=== PATIENT | female | born 1985 | race Caucasian/White ===

== ENCOUNTER → 2017-01-17 | Outpatient (CLI) | payer OTHER | LOC: FIMAGING 07:20 | PROVIDERS: ATTEND Advanced Practice Midwife | DX: Z34.02 Encounter for supervision of normal first pregnancy, second trimester (principal); Z3A.19 19 weeks gestation of pregnancy ==

== ENCOUNTER 2017-06-05 03:53 | Inpatient (IN) | payer OTHER ==
[2017-06-05] MEDS ORDERED: TERBUTALINE SULFATE 1 MG/ML VIAL IV PRN (04:31)
[2017-06-05] MEDS ORDERED: LR 1,000 ML IV PRN (04:31)
[2017-06-05] MEDS ORDERED: OLIVE OIL 118 ML BTL MISC PRN (04:31)
[2017-06-05] MEDS ORDERED: EPSOM SALT 454 GM TP PRN (04:31)
[2017-06-05] MEDS ORDERED: OXYTOCIN/NORMAL SALINE 1,000 ML IV PRN (04:31)
[2017-06-05] MEDS ORDERED: LIDOCAINE 1% 300 MG/30 ML SDV SC PRN (04:31)
[2017-06-05] MEDS ORDERED: AMMONIA AROMATIC 1 EACH AMP IH PRN (04:31)
[2017-06-05] MEDS ORDERED: MISOPROSTOL 200 MCG TAB PO PRN (04:31)
[2017-06-05 05:18] LABS: PLATELET COUNT 170 10^3/uL (150-400)
[2017-06-05] MEDS ORDERED: AMMONIA AROMATIC 1 EACH AMP IH ONE (05:38)
[2017-06-05] MEDS ORDERED: LIDOCAINE 1% 300 MG/30 ML SDV ONE (05:38)
[2017-06-05] MEDS ORDERED: OLIVE OIL 118 ML BTL ONE (05:38)
[2017-06-05] MEDS ORDERED: TERBUTALINE SULFATE 1 MG/ML VIAL ONE (05:39)
[2017-06-05] MEDS ORDERED: OXYTOCIN 10 UNIT/ML VIAL ONE (05:39)
[2017-06-05] MEDS ORDERED: MISOPROSTOL 200 MCG TAB ONE (05:39)
--- NOTE | 2017-06-05 05:52 | GHP ---
[f rep st] PREOP HISTORY AND PHYSICAL DATE OF ADMISSION: 06/05/2017 HISTORY: The patient is a 32-year-old, G1, P0, at 38 weeks and 6 days with sure last menstrual perio d and 9-week ultrasound, who presents with spontaneous onset of labor. Her contractions began approx imately 5:30 and have gradually increased. The patient is having increased fatigue and wanted to pre sent and find out how the labor progress is going. Bag of water is intact. The patient has not had any bleeding except a small amount with a mucus plug. Good movement. CURRENT HISTORY: The patient has been followed with [facility] since 9 weeks' ge station. The patient has essentially had an uncomplicated course. LABS: Include maternal blood type A positive with negative antibody screen. Initial hemato crit 42% with drop down to 39% in the . RPR nonreactive. Rubella immune. Hepatitis B surf marc antigen negative. HIV negative. 1-hour Glucola is normal. Urinalysis was negative. Gonorrhea and chlamydia were negative. TSH 2.2 with free T4 normal. Negative screening for SMA and cystic fib rosis. GBS culture was negative. PAST MEDICAL HISTORY: History of migraines, abnormal Pap smears with positive HPV but negative for t ype 16 and 18P. The patient had colposcopies in 2013 and 2014. 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 She has not had any subsequent problems. ALLERGIES: No known drug allergies. CURRENT MEDICATIONS: Only vitamins. SOCIAL HISTORY: The patient is , lives with her , and her mother is prior Labor and De livery nurse. The patient is a nonsmoker. No alcohol or drug use. PHYSICAL EXAM: GENERAL: Upon admission, the patient is a well-developed, well-nourished white femal e in no acute distress. VITAL SIGNS: The patient is afebrile with normal vital signs. See nursing documentation for full details. heart tones reveal a category 1 tracing, baseline in the 130s, with good variability and accelerations. Contractions every 3-5 minutes apart. Palpably mild to mo derate. PELVIC: Revealed the cervix was a loose 4 cm, 95% effaced, -1 station. Bag of water is int act. EXTREMITIES: Nontender with no edema. ASSESSMENT: Intrauterine at 38 weeks and 6 days with spontaneous onset of labor. Bag of w ater intact. GBS negative. The patient wants to attempt a natural approach to labor. We will get a n epidural if needed. PLAN: Expected vaginal delivery. History of positive HPV. Will follow up Paps . /[id number]/MODL
[2017-06-05] MEDS ORDERED: PHENYLEPHRINE HCL 100 MCG/ML SYR ONE (08:44)
[2017-06-05] MEDS ORDERED: fentaNYL 200 MCG, BUPIVACAINE 0.5% 20 ML in NS 100 ML EP SCH (09:00)
--- NOTE | 2017-06-05 09:38 | PREANESOB ---
Obstetric Pre-Anesthesia Info - General Info Proposed Procedure: Labor epidural : 1 Para: 0 JEREMY: 06/13/17 Gestational Age: 38 week(s) and 6 day(s) Anesthesia ROS: wnl Allergies/Adverse Reactions: Allergy/AdvReac Type Severity Reaction Status Date / Time No Known Allergies Allergy Unverified 06/05/17 04:06 Home Medications: Medication Instructions Recorded 1 tab PO DAILY 06/05/17 Visit Medications: Generic Name Dose Route Start Last Admin Trade Name Freq PRN Reason Stop Dose Admin Ammonia (Aromatic Spirit) 1 each 06/05/17 04:31 Ammonia Aromatic IH 06/15/17 04:30 ONCE PRN Fainting Lactated Ringer's 1,000 mls @ 0 mls/hr 06/05/17 04:31 Lr IV 06/06/17 04:30 PRN PRN SEE PROTOCOL CONDITIONS Protocol Per Protocol Oxytocin/Sodium Chloride 1,000 mls @ 0 mls/hr 06/05/17 04:31 Pitocin 20 Units/Ns (Premix) IV PRN PRN Post- bleeding Per Protocol Fentanyl 200 mcg/ Bupivacaine 100 mls @ 0 mls/hr 06/05/17 09:00 HCl 20 ml/ Sodium Chloride EP 06/15/17 08:59 CONT BRAD Protocol As Directed Ibuprofen 600 mg 06/05/17 04:31 Motrin PO 12/02/17 04:30 Q6HRS PRN post , inflammation Lidocaine HCl 300 mg 06/05/17 04:31 Lidocaine Hcl 1% SC 12/02/17 04:30 ONCE PRN episiotomy Magnesium Sulfate 454 gm 06/05/17 04:31 Epsom Salt TP 12/02/17 04:30 Q1H PRN perineal discomfort Misoprostol 800 - 1,000 mcg 06/05/17 04:31 Cytotec PO 12/02/17 04:30 ONCE PRN Vaginal Atony/Bleeding [place] Oil 118 ml 06/05/17 04:31 Sweet Oil MISC 12/02/17 04:30 ONCE PRN perineal massage Terbutaline Sulfate 0.25 mg 06/05/17 04:31 Brethine IV 12/02/17 04:30 ONCE PRN Tachysystole Discontinued Medications Generic Name Dose Route Start Last Admin Trade Name Freq PRN Reason Stop Dose Admin Ammonia (Aromatic Spirit) Confirm 06/05/17 05:38 Ammonia Aromatic Administered 06/05/17 05:39 Dose 1 each IH .STK-MED ONE Lidocaine HCl Confirm 06/05/17 05:38 Lidocaine Hcl 1% Administered 06/05/17 05:39 Dose 300 mg .ROUTE .STK-MED ONE Misoprostol Confirm 06/05/17 05:39 Cytotec Administered 06/05/17 05:40 Dose 1,000 mcg .ROUTE .STK-MED ONE [place] Oil Confirm 06/05/17 05:38 Sweet Oil Administered 06/05/17 05:39 Dose 118 ml .ROUTE .STK-MED ONE Oxytocin Confirm 06/05/17 05:39 Pitocin Administered 06/05/17 05:40 Dose 40 unit .ROUTE .STK-MED ONE Phenylephrine HCl Confirm 06/05/17 08:44 Neosynephrine Administered 06/05/17 08:45 Dose 1,000 mcg .ROUTE .STK-MED ONE Terbutaline Sulfate Confirm 06/05/17 05:39 Brethine Administered 06/05/17 05:40 Dose 1 mg .ROUTE .STK-MED ONE - Vital Signs Height/Weight (Nursing): Height 172.72 cm Weight 96.162 kg - Focused Exam Neck exam: FROM Mallampati Score: Class 2 Mouth exam: normal dental/mouth exam Pulmonary: no respiratory distress Cardiovascular: regular rate and rhythym Labs: 06/05/17 04:50 Patient ABO/Rh A POSITIVE 06/05/17 04:50 - Plan Anesthetic Plan: labor epidural Consent Signed and on Chart: Yes Patient/Guardian Understands and Agrees to Plan: Yes Urgent/Emergent Case: Abdi lawson completed preop but documented later for safe timely pt care
[2017-06-05] MEDS ORDERED: LIDOCAINE 1% 2 ML INJ ONE (10:10)
[2017-06-05] MEDS ORDERED: CALCIUM CARBONATE 500 MG CHEWABLE TAB PO PRN (10:51)
[2017-06-05] MEDS ORDERED: LR 500 ML IV PRN (11:30)
[2017-06-05] MEDS ORDERED: OXYTOCIN/NORMAL SALINE 500 ML IV SCH (11:30)
[2017-06-05] MEDS ORDERED: BUPIVACAINE 0.25% 30 ML SDV ONE (11:53)
--- NOTE | 2017-06-05 14:21 | OBPROG ---
Labor Progress Note Assessment/Plan: Assessment: at 38.6 weeks ega with spontaneous labor Comfortable with epidural in place Completely dilated, 0 station and laboring down Cntx q 5 min Plan: Will continue to labor down Augment with pitocin to improve contraction frequency Anticipate 06/05/17 14:18 06/05/17 14:27 Subjective/Intrapartum Course: 06/05/17 14:21 Comfortable with epidural, on side with peanut ball in place Objective: 06/05/17 04:50 Patient ABO/Rh A POSITIVE 06/05/17 04:50 VSS Category 1 EFM [place]: Cntx mod to palpation q 5 min CX:complete/0 station - SVE Dilation (cm): 10 Effacement (%): 100 Station: 0 Membranes: SROM Amniotic Fluid Color: Clear Dilation Complete Date: 06/05/17 - Contraction Pattern Assessment Current Contraction Pattern: Regular - FHR Assessment Lamb FHR (bpm): 140 FHR Pattern Variability: Moderate FHR Category: 1 Oxytocin Orders Assessment - Pre-Induction/Augmentation Assessment Gestational Age: 38 week(s) and 6 day(s) ICD10 Worksheet Patient Problems: Problems Problem Status Onset EARLY LABOR Acute
[2017-06-05] MEDS ORDERED: PROPOFOL 200 MG/20 ML VIAL ONE (16:18)
[2017-06-05] MEDS ORDERED: LIDOCAINE 2% 5 ML SDV ONE (16:18)
--- NOTE | 2017-06-05 16:48 | POSTANESTH ---
Post Anesthetic Evaluation Cardiovascular Status: Normal, Stable Respiratory Status: Normal, Stable Level of Consciousness/Mental Status: Can Participate in Eval Pain Control: Adequate, Prn Tx Ordered Nausea/Vomiting Control: Adequate, Prn Tx Ordered Complications Possibly Related to Anesthesia: None Noted
[2017-06-05] MEDS ORDERED: SIMETHICONE 80 MG TAB CHEW PO PRN (17:30)
[2017-06-05] MEDS ORDERED: HYDROCODONE/APAP 5/325 TAB PO PRN (17:30)
[2017-06-05] MEDS ORDERED: ACETAMINOPHEN 325 MG TAB PO PRN (17:30)
[2017-06-05] MEDS ORDERED: HYDROCORTISONE 0.5% CREAM TP PRN (17:30)
--- NOTE | 2017-06-05 17:37 | OBDEL ---
Info Presentation at Delivery: Vertex L&D Analgesia/Anesthesia Type: Epidural GBS+: No Intrapartum Medications: Generic Name Dose Route Start Last Admin Trade Name Freq PRN Reason Stop Dose Admin Calcium Carbonate 500 mg 06/05/17 10:51 06/05/17 11:23 Tums PO 12/02/17 10:50 500 mg TID PRN Administration Indigestion Oxytocin/Sodium Chloride 500 mls @ 0 mls/hr 06/05/17 11:30 06/05/17 14:02 Pitocin 30 Units/Ns (Premix) IV 12/02/17 11:29 500 mls CONT BRAD Administration Protocol Per Protocol - Care Provider Lodge Sales Associate/TRANSPORTATION SUPERVISOR: Kacie Santiago - Hospital Course Intrapartum: 06/05/17 14:21 Comfortable with epidural, on side with peanut ball in place Indications for Delivery: Spontaneous Labor, SROM Vaginal Delivery - Delivery Provider Delivery Physician/CNM: Mile Asencio Proctoring Provider: Angelo Currie - Labor and Delivery Onset of Contractions Date: 06/05/17 Onset of Contractions Time: 17:30 Onset of Contractions Type: Augmented Rupture of Membranes Date: 06/05/17 Rupture of Membranes Time: 07:52 Rupture of Membranes Type: Spontaneous Amniotic Fluid Color: Clear Dilation Complete Date: 06/05/17 Dilation Complete Time: 12:25 Placenta Delivery Date: 06/05/17 Placenta Delivery Time: 16:41 Total Hours of Labor: 0 Non-surgical Procedures: FSE Laceration: 2nd Degree, Other (Specify) (left sulcus) Repair: 2-0, Vicryl Vaginal Sponge Count Correct: Yes Vaginal Needle Count Correct: Yes Vaginal Sweep Performed: No EBL: 300 Cord Gases: Cord Gases Cord Blood PCO2 65.0 mmHg (37-60) H 06/05/17 16:40 Cord Base Excess -9.8 mEq/L (-13.6--3.2) 06/05/17 16:40 Cord ABG pH 7.14 (7.10-7.37) 06/05/17 16:40 Cord VBG pH 7.26 (7.20-7.42) 06/05/17 16:40 Operative Report - Delivery Cord Gases: Cord Gases Cord Blood PCO2 65.0 mmHg (37-60) H 06/05/17 16:40 Cord Base Excess -9.8 mEq/L (-13.6--3.2) 06/05/17 16:40 Cord ABG pH 7.14 (7.10-7.37) 06/05/17 16:40 Cord VBG pH 7.26 (7.20-7.42) 06/05/17 16:40 Assissted Delivery Assisted Delivery Type: Vacuum Station: +3 Pop offs (Total): 1 Pulls (Total): 2 Assisted Delivery Comment: vacuum assisted delivery by Delvin Drew [place] Data JEREMY: 06/13/17 Gestational Age: 38 week(s) and 6 day(s) Lamb Delivery Date: 05/29/17 Delivery Time: 16:36 Sex of Infant: Female Score (1 Min): 7 Score (5 Min): 9 ICD10 Worksheet Patient Problems: Problems Problem Status Onset EARLY LABOR Acute
[2017-06-05] MEDS: IBUPROFEN 600 MG TAB PO PRN (17:57)
[2017-06-06] MEDS: IBUPROFEN 600 MG TAB PO PRN ×4 (00:05→18:01)
--- NOTE | 2017-06-06 00:38 | OBDEL ---
Info Type: Vaginal Presentation at Delivery: Vertex L&D Analgesia/Anesthesia Type: Epidural GBS+: No Intrapartum Medications: Generic Name Dose Route Start Last Admin Trade Name Freq PRN Reason Stop Dose Admin Calcium Carbonate 500 mg 06/05/17 10:51 06/05/17 11:23 Tums PO 12/02/17 10:50 500 mg TID PRN Administration Indigestion Ibuprofen 600 mg 06/05/17 04:31 06/05/17 17:57 Motrin PO 12/02/17 04:30 600 mg Q6HRS PRN Administration post , inflammation Discontinued Medications Generic Name Dose Route Start Last Admin Trade Name Freq PRN Reason Stop Dose Admin Oxytocin/Sodium Chloride 500 mls @ 0 mls/hr 06/05/17 11:30 06/05/17 14:02 Pitocin 30 Units/Ns (Premix) IV 12/02/17 11:29 500 mls CONT BRAD Administration Protocol Per Protocol Indications for Delivery: Spontaneous Labor, SROM Vaginal Delivery - Delivery Provider Delivery Physician/CNM: Angelo Currie - Labor and Delivery Onset of Contractions Date: 06/05/17 Onset of Contractions Time: 17:30 Onset of Contractions Type: Augmented Rupture of Membranes Date: 06/05/17 Rupture of Membranes Time: 07:52 Rupture of Membranes Type: Spontaneous Amniotic Fluid Color: Clear Dilation Complete Date: 06/05/17 Dilation Complete Time: 12:25 Placenta Delivery Date: 06/05/17 Placenta Delivery Time: 16:41 Total Hours of Labor: 0 Non-surgical Procedures: FSE Laceration: 2nd Degree (With left sulcus/sidewall) Repair: 3-0 (Laceration repaired by Mile Asencio CNM.) Vaginal Sponge Count Correct: Yes Vaginal Needle Count Correct: Yes Delivery Events: None Delivery Comment: I was the OBGYN front maker backing up Mile Asencio CNM for this delivery. She had started to push and had been pushing for approximately 30 minutes when I was called that FHR had dropped to the 70s and had remained down. I presented to the bedside as mom had oxygen on, left lateral decub position, and FHR tracing was just coming back up to 120-130 bpm, very reassuring with accelerations. I did place an FSE as there was some difficulty obtaining FHR data, and also examined her and found her to be in direct OA position at +3/5 station. We had a discussion about options for delivery, from continued pushing to pushing in the OR, to the potential for my assistance with operative vaginal delivery. RBA discussed for VAVD and pt verbally agreed and consented. Bladder had been emptied just 30 minutes prior per nursing report. Between contractions I placed the hand-held firm cup Kiwi vaccumm on the point of flexion with ease, care taken to not trap any maternal tissue. Then with three contractions and one pop-off we were able to bring the baby underneath the pubic bone and delivered easily. Pressure would brought down between contractions, progress made in terms of lower station with each pull and contraction. Suction cup removed at the perineum and the LEFT anterior shoulder delivered easily followed by the posterior shoulder and body. Baby placed up on mom's chest and we did wait for 60 seconds of delayed cord clamping before clamping cord. Cord gasses sent, placenta not sent to pathology. Placenta delivered spontaneously without issue, grossly normal upon initial inspection. At this point I did hand off care of the patient and repair of the laceration specifically to Mile Asencio CNM so that I could deal with another emergent situation with another patient. EBL approximately 250cc when I left the room. Cord Gases: Cord Gases Cord Blood PCO2 65.0 mmHg (37-60) H 06/05/17 16:40 Cord Base Excess -9.8 mEq/L (-13.6--3.2) 06/05/17 16:40 Cord ABG pH 7.14 (7.10-7.37) 06/05/17 16:40 Cord VBG pH 7.26 (7.20-7.42) 06/05/17 16:40 - Medications Labor Augmentation/Induction Methods Used: Pitocin Labor Augmentation/Induction Indication: Contraction Strength Inadequate Operative Report - Delivery Cord Gases: Cord Gases Cord Blood PCO2 65.0 mmHg (37-60) H 06/05/17 16:40 Cord Base Excess -9.8 mEq/L (-13.6--3.2) 06/05/17 16:40 Cord ABG pH 7.14 (7.10-7.37) 06/05/17 16:40 Cord VBG pH 7.26 (7.20-7.42) 04/16/18 16:40 Assissted Delivery Assisted Delivery Type: Vacuum (Firm cup KIWI) Station: +3 Pop offs (Total): 1 Pulls (Total): 7 Assisted Delivery Comment: See prior note for VAVD description. [place] Data JEREMY: 06/13/17 Gestational Age: 39 week(s) and 0 day(s) Lamb Delivery Date: 06/05/17 Delivery Time: 16:36 Sex of : Female Dietrich Weight (gm): 3264 kg Score (1 Min): 7 Score (5 Min): 9 Shoulder Dystocia Dystocia Comment: No shoulder dystocia ICD10 Worksheet Patient Problems: Problems Problem Status Onset EARLY LABOR Acute Non-reassuring cardiotocographic tracing Acute Vacuum extraction, delivered, current hospitalization Acute - ICD10 Problem Qualifiers (1) Non-reassuring cardiotocographic tracing (2) Vacuum extraction, delivered, current hospitalization
[2017-06-06] MEDS: DOCUSATE SODIUM 100 MG CAP PO PRN ×2 (01:17→10:35)
[2017-06-06] MEDS: FERROUS SULFATE 325 MG TAB PO SCH (10:35)
--- NOTE | 2017-06-06 11:14 | OBPP ---
Progress Note Assessment/Plan: Assessment: s/p vacuum assisted @38.6 weeks ega PPD #1 Baby in NICU but stable - currently pumping, unable to breastfeed yet Plan: Routine PP care Anticipate discharge tomorrow 06/05/17 14:18 06/05/17 14:27 06/06/17 11:12 06/06/17 11:19 06/06/17 11:31 Subjective/ Course: 06/06/17 11:27 Patient is doing well this morning. Reports lochia to be light, pain controlled with oral medication, tolerating regular diet and voiding. Baby in in NICU doing well- is skin to skin at this time. She started pumping this morning - is hoping to start this afternoon. Objective: 06/06/17 06:10 Patient ABO/Rh A POSITIVE 06/05/17 04:50 Temp Pulse Resp BP Pulse Ox 36.8 C 70 17 103/65 96 06/06/17 08:00 06/06/17 08:00 06/06/17 08:00 06/06/17 08:00 06/06/17 08:00 VSS Respirations unlabored Extremities with minimal edema Lochia scant Fundus firm Perineum healing well - well approximated Nipples intact Uterine Position/Fundal Height: At Umbilicus Uterine Tone: Firm Physical Exam - Physical Exam EENT: PERRL/EOMI Respiratory: normal breath sounds Cardiac/Chest: regular rate, rhythm Extremities: normal range of motion Skin: normal color, warm/dry Neuro/Psych: alert, normal mood/affect, oriented x 3
[2017-06-07] MEDS: IBUPROFEN 600 MG TAB PO PRN ×3 (00:50→16:38)
[2017-06-07 09:21] VITALS: BP 103/75
[2017-06-07] MEDS: DOCUSATE SODIUM 100 MG CAP PO PRN (09:44)
[2017-06-07] MEDS: FERROUS SULFATE 325 MG TAB PO SCH (09:44)
--- NOTE | 2017-06-07 10:18 | OBPP ---
Progress Note Assessment/Plan: Assessment: 1) s/p VAVD PPD #2 - pt is stable 2) Anemia - pt is asymptomatic Plan: Plan for d/c home today, pt will board since baby girl is in NICU Instructions reviewed with pt No Rx given Cont PNV, iron, colace and Motrin Pelvic rest RTC in 4 and 6 weeks for pp visit 06/07/17 10:15 Subjective/ Course: 06/06/17 11:27 Patient is doing well this morning. Reports lochia to be light, pain controlled with oral medication, tolerating regular diet and voiding. Baby in in NICU doing well- is skin to skin at this time. She started pumping this morning - is hoping to start this afternoon. 06/07/17 10:17 Pt seen and examined. Doing well, she is baby girl in the NICU. Minimal cramping, controlled with Motrin. Moderate lochia. Pt is OOB, luis reg diet, voiding and BM x 1. BF is going well. She is going to board. Objective: 06/06/17 06:10 Patient ABO/Rh A POSITIVE 06/05/17 04:50 Temp Pulse Resp BP Pulse Ox 36.1 C 64 16 103/75 96 06/07/17 08:40 06/07/17 08:40 06/07/17 08:40 06/07/17 08:40 06/07/17 08:40 Uterine Position/Fundal Height: Umbilicus -2 Uterine Tone: Firm Physical Exam - Physical Exam Respiratory: lungs clear, normal breath sounds Cardiac/Chest: regular rate, rhythm Abdomen: normal bowel sounds, non-tender, soft, flatus (+) Extremities: non-tender, normal inspection Skin: normal color, warm/dry Neuro/Psych: alert, normal mood/affect, oriented x 3
--- NOTE | 2017-06-07 10:19 | OBGCSDC ---
General Delivery Information - General Info : 1 Para: 1 Abortions: 0 Type: Vaginal L&D Analgesia/Anesthesia Type: Epidural Admission Date: 06/05/17 Labs: Patient ABO/Rh A POSITIVE 06/05/17 04:50 Hct 34.6 % (38.0-47.0) L 06/06/17 06:10 - Hospital Course : 06/06/17 11:27 Patient is doing well this morning. Reports lochia to be light, pain controlled with oral medication, tolerating regular diet and voiding. Baby in in NICU doing well- is skin to skin at this time. She started pumping this morning - is hoping to start this afternoon. 06/07/17 10:17 Pt seen and examined. Doing well, she is baby girl in the NICU. Minimal cramping, controlled with Motrin. Moderate lochia. Pt is OOB, luis reg diet, voiding and BM x 1. BF is going well. She is going to board. Vaginal - Delivery Provider Delivery Physician/CNM: Angelo Currie - Diagnosis Labor: Augmented Rupture of Membranes Type: Spontaneous Amniotic Fluid Color: Clear Laceration: 2nd Degree (With left sulcus/sidewall) Repair: 3-0 (Laceration repaired by Mile Asencio CNM.) Delivery Events: None - Procedures Assisted Delivery Type: Vacuum (Firm cup KIWI) Non-surgical Procedures: FSE - Delivery Non-surgical Procedures: FSE [place] Data JEREMY: 06/13/17 Gestational Age: 39 week(s) and 1 day(s) Lamb Delivery Date: 06/05/17 Delivery Time: 16:36 Sex of : Female Lynn Weight (gm): 3264 kg Score (1 Min): 7 Score (5 Min): 9 Discharge Information - Discharge Information Condition: Good Instruction/Follow Up: Four Weeks, Six Weeks
== END 2017-06-07 18:00 | disposition home or self-care (01) | DRG 775 ==
LOC: FLD 03:53 → FOB 20:47
PROVIDERS: ADMIT Obstetrics & Gynecology; ATTEND Obstetrics & Gynecology
PROC: 10D07Z6 Extraction of Products of Conception, Vacuum, Via Natural or Artificial Opening (ICD-10-PCS; principal; 2017-06-05)
PROC: 0KQM0ZZ Repair Perineum Muscle, Open Approach (ICD-10-PCS; principal; 2017-06-05)
DX: O76 Abnormality in fetal heart rate and rhythm complicating labor and delivery (principal); O70.1 Second degree perineal laceration during delivery; O90.81 Anemia of the puerperium; Z3A.39 39 weeks gestation of pregnancy; Z37.0 Single live birth
CPT/HCPCS: J2370; J2590; J2704; J3010; J3105

== ENCOUNTER → 2017-06-13 | Outpatient (CLI) | payer OTHER | LOC: FLACT 09:51 | PROVIDERS: ATTEND Obstetrics & Gynecology | DX: O92.70 Unspecified disorders of lactation (principal) | CPT/HCPCS: G0463 ==